=== PATIENT | female | born 1965 | race Hispanic/Latino ===

== ENCOUNTER 2017-04-27 16:44 | Emergency (ER) | payer OTHER ==
[~2017-04-27] VITALS: Ht 149.9 cm; Wt 77.1 kg
[~2017-04-27 16:44] MED LIST: Z.0.ZOLOFT50 MG PO; Z.2.METFORMIN HCL500 PO
--- OUTSIDE RECORDS SUMMARY | 2017-04-27 16:46 | XMS REPORT | Clinical Summary ---
Author Author [facility] Organization [facility] Address Unknown Phone Unavailable Care Team Providers Care [employer] Name Role Phone Asked, Pcp PCP Unavailable Allergies Active Allergy Reactions Severity Noted Date Comments No Known Drug Allergies 07/23/2015 Current Medications Prescription Sig. Disp. Refills Start End Date Status Date aspirin (ECOTRIN) 81 MG Take 81 mg by mouth Active enteric coated tablet daily. atorvastatin (LIPITOR) 20 Take 1 tablet (20 mg 90 tablet 3 08/04/19 08/04/19 Active MG tablet total) by mouth daily. 17 18 clopidogrel (PLAVIX) 75 Take 1 tablet (75 mg 90 tablet 3 08/04/19 Active mg tablet total) by mouth daily. 17 18 metoprolol succinate XL Take 1 tablet (100 mg 90 tablet 3 08/04/19 08/04/19 Active (TOPROL XL) 100 mg 24 hr total) by mouth daily. 17 18 tablet metoprolol succinate XL Take 1 tablet (50 mg 90 tablet 3 08/04/19 Active (TOPROL-XL) 50 mg 24 hr total) by mouth daily. 17 18 tablet nitroglycerin (NITROSTAT) Place 0.4 mg under the Active 0.4 MG SL tablet tongue. clopidogrel (PLAVIX) 75 TAKE 1 TABLET DAILY 90 tablet 1 01/06/20 Active mg tablet 17 metFORMIN (GLUCOPHAGE) Take 1 tablet (1,000 mg 180 tablet 0 01/17/20 Active 1,000 mg total) by mouth 2 (two) 17 tabletIndications: times a day. Uncontrolled type 2 diabetes mellitus without complication, with long-term current use of insulin losartan (COZAAR) 50 MG TAKE 1 TABLET DAILY 90 tablet 1 03/26/19 Active tablet 18 atorvastatin (LIPITOR) 20 Take 1 tablet (20 mg 90 tablet 3 01/31/20 05/26/19 Discontin MG tablet total) by mouth daily. 16 17 ued clopidogrel (PLAVIX) 75 Take 1 tablet (75 mg 90 tablet 3 01/31/20 Discontin mg tablet total) by mouth daily. 16 17 ued losartan (COZAAR) 50 MG Take 1 tablet (50 mg 90 tablet 3 01/31/20 Discontin tablet total) by mouth daily. 16 17 ued metoprolol succinate XL Take 1 tablet (50 mg 90 tablet 3 01/31/20 Discontin (TOPROL-XL) 50 mg 24 hr total) by mouth daily. 16 17 ued tablet metoprolol succinate XL Take 1 tablet (100 mg 30 tablet 11 01/31/20 05/26/19 Discontin (TOPROL XL) 100 mg 24 hr total) by mouth daily. 16 17 ued tablet metFORMIN (GLUCOPHAGE) Take 1 tablet (1,000 mg 180 tablet 0 01/31/20 01/17/20 Discontin 1,000 mg total) by mouth 2 (two) 16 17 ued tabletIndications: times a day. Uncontrolled type 2 diabetes mellitus without complication, with long-term current use of insulin dulaglutide (TRULICITY) Trulicity 1.5 mg/0.5 mL 12 Syringe 0 01/31/20 08/04/19 Discontin 1.5 mg/0.5 mL pen subcutaneous pen injector 16 17 ued injectorIndications: Uncontrolled type 2 diabetes mellitus without complication, with long-term current use of insulin atorvastatin (LIPITOR) 20 Take 1 tablet (20 mg 90 tablet 1 05/26/19 05/26/19 Discontin MG tablet total) by mouth daily. 17 17 ued clopidogrel (PLAVIX) 75 Take 1 tablet (75 mg 90 tablet 1 05/26/19 Discontin mg tablet total) by mouth daily. 17 17 ued losartan (COZAAR) 50 MG Take 1 tablet (50 mg 90 tablet 1 05/26/19 Discontin tablet total) by mouth daily. 17 17 ued metoprolol succinate XL Take 1 tablet (100 mg 90 tablet 1 05/26/19 05/26/19 Discontin (TOPROL XL) 100 mg 24 hr total) by mouth daily. 17 17 ued tablet metoprolol succinate XL Take 1 tablet (50 mg 90 tablet 1 05/26/19 Discontin (TOPROL-XL) 50 mg 24 hr total) by mouth daily. 17 17 ued tablet atorvastatin (LIPITOR) 20 Take 1 tablet (20 mg 30 tablet 0 05/26/19 05/26/19 Discontin MG tablet total) by mouth daily. 17 17 ued clopidogrel (PLAVIX) 75 Take 1 tablet (75 mg 30 tablet 0 05/26/19 Discontin mg tablet total) by mouth daily. 17 17 ued losartan (COZAAR) 50 MG Take 1 tablet (50 mg 30 tablet 0 05/26/19 Discontin tablet total) by mouth daily. 17 17 ued metoprolol succinate XL Take 1 tablet (100 mg 30 tablet 0 05/26/19 05/26/19 Discontin (TOPROL XL) 100 mg 24 hr total) by mouth daily. 17 17 ued tablet metoprolol succinate XL Take 1 tablet (50 mg 30 tablet 0 05/26/19 Discontin (TOPROL-XL) 50 mg 24 hr total) by mouth daily. 17 17 ued tablet atorvastatin (LIPITOR) 20 Take 1 tablet (20 mg 90 tablet 1 05/26/19 08/04/19 Discontin MG tablet total) by mouth daily. 17 17 ued clopidogrel (PLAVIX) 75 Take 1 tablet (75 mg 90 tablet 1 05/26/19 Discontin mg tablet total) by mouth daily. 17 17 ued losartan (COZAAR) 50 MG Take 1 tablet (50 mg 90 tablet 1 05/26/19 Discontin tablet total) by mouth daily. 17 17 ued metoprolol succinate XL Take 1 tablet (100 mg 90 tablet 1 05/26/19 08/04/19 Discontin (TOPROL XL) 100 mg 24 hr total) by mouth daily. 17 17 ued tablet metoprolol succinate XL Take 1 tablet (50 mg 90 tablet 1 05/26/19 Discontin (TOPROL-XL) 50 mg 24 hr total) by mouth daily. 17 17 ued tablet fluconazole (DIFLUCAN) Take 1 tablet (150 mg 1 tablet 0 08/04/19 150 MG tablet total) by mouth once for 17 17 1 dose. losartan (COZAAR) 50 MG Take 1 tablet (50 mg 90 tablet 3 08/04/19 Discontin tablet total) by mouth daily. 17 18 ued fluconazole (DIFLUCAN) TK 1 T PO 1 TIME 0 08/24/19 10/06/19 Discontin 150 MG tablet 17 17 ued terconazole (TERAZOL 7) Insert 1 applicator into 45 g 0 10/06/19 0.4 % vaginal the vagina nightly for 7 17 17 creamIndications: Yeast days. infection involving the vagina and surrounding area fluconazole (DIFLUCAN) Take one tablet by mouth 3 tablet 0 10/06/19 10/13/19 150 MG tabletIndications: now, repeat in 72 hours 17 17 Yeast infection involving and again 72 hours after the vagina and the second dose surrounding area Active Problems Problem Noted Date Pure hypercholesterolemia 08/03/2016 Chronic coronary artery disease 08/02/2015 Diabetes mellitus 08/02/2015 Vitamin D deficiency 08/02/2015 HLD (hyperlipidemia) 08/02/2015 Overweight 08/02/2015 Neuropathy 08/02/2015 Essential hypertension 08/02/2015 Anemia 08/02/2015 Chest pain 08/02/2015 Hypertension 08/02/2015 Tobacco use 08/02/2015 Encounters Date Type Specialty Care Team Description 04/05/2017 Refill Endocrinology Ashely Miller NP Uncontrolled type 2 diabetes mellitus without complication, with long-term current use of insulin 03/26/2017 Refill Cardiology Danilo Moore MD Med Refill 01/16/2017 Orders Only Endocrinology Ashely Miller NP Uncontrolled type 2 diabetes mellitus without complication, with long-term current use of insulin 01/04/2017 Refill Cardiology Danilo Moore MD Med Refill 10/05/2016 Office Visit Obstetrics and Gynecology Madonna Mendez Well woman exam (Primary MD Althea Dx); Visit for screening mammogram; Vaginal irritation; Yeast infection involving the vagina and surrounding area; Mixed incontinence 08/07/2016 Orders Only Cardiology Danilo Moore MD Abnormal CBC (Primary Dx) 08/03/2016 Office Visit Cardiology Danilo Moore MD Coronary artery disease involving [place] coronary artery of [place] heart without angina pectoris (Primary Dx); Hyperlipidemia, unspecified hyperlipidemia type; Chronic coronary artery disease; Essential hypertension 08/03/2016 Refill Cardiology Ilana Wagner MA Med Refill 05/25/2016 Refill Cardiology Bi Garcia Med Refill 05/25/2016 Refill Cardiology Bi Garcia Med Refill 05/25/2016 Refill Cardiology Bi Garcia Med Refill after 04/26/2016 Family History Medical History Relation Name Comments Cancer Father Malignant tumor of prostate Diabetes Father Heart disease Father Diabetes Mother Heart disease Mother Relation Name Status Comments Father Alive Mother Social History Tobacco Use Types Packs/Day Years Used Date Current Every Day Smoker Tobacco Cessation: Ready to Quit: Yes Alcohol Use Drinks/Week oz/Week Comments Yes occ Sex Assigned at Date Recorded Not on file Last Filed Vital Signs Vital Sign Reading Time Taken Blood Pressure 132/78 10/05/2016 9:18 AM CDT Pulse 76 10/05/2016 9:18 AM CDT Temperature - - Respiratory Rate - - Oxygen Saturation - - Inhaled Oxygen - - Concentration Weight 77.6 kg (171 lb) 10/05/2016 9:18 AM CDT Height 149.9 cm (4' 11") 10/05/2016 9:18 AM CDT Body Mass Index 34.54 10/05/2016 9:18 AM CDT Plan of Treatment Health Maintenance Due Date Last Done Comments FOOT EXAM 11/20/1977 OPHTHALMOLOGY EXAM 11/20/1977 URINE MICROALBUMIN 11/20/1977 PAP SMEAR 11/20/1988 INFLUENZA VACCINE 09/19/2016 Results * SURESWAB(R), CANDIDIASIS, PCR (10/05/2016 10:07 AM) Component Value Ref Range C. albicans, DNA DETECTED (A) C. glabrata, DNA NOT DETECTED C. tropicalis, DNA NOT DETECTED C. parapsilosis, DNA NOT DETECTED Comment: REFERENCE RANGE: NOT DETECTED This test was developed and its analytical performance characteristics have been determined by [facility]. It has not been cleared or approved by FDA. This assay has been validated pursuant to the CLIA regulations and is used for clinical purposes. Specimen Performing Laboratory [facility] * SURESWAB(R) TRICHOMONAS VAGINALIS RNA, QL, TMA (Reflex) (10/05/2016 10:07 AM) Component Value Ref Range Sureswab(r) trichomonas NOT DETECTED vaginalis RNA, QL, TMA Comment: REFERENCE RANGE: NOT DETECTED This test was performed using the APTIMA(R) Trichomonas vaginalis Assay(GEN-PROBE(R)). For more information on this test, go to: [email or web address]/faq/[email or web address] reyes Specimen Performing [facility] * ISAÍAS(R) BACTERIAL VAGINOSIS DNA, QN, PCR (10/05/2016 10:07 AM) Component Value Ref Range BV category EQUIVOCAL Lactobacillus species 7.1 Log (cells/mL) Atopobium vaginae DETECTED Log (cells/mL) Megasphaera species NOT DETECTED Log (cells/mL) Gardnerella vaginalis 6.3 Log (cells/mL) Comment: REFERENCE RANGE: BV Category: NOT SUPPORTIVE NOT SUPPORTIVE OF BV: The pattern of results is not supportive of a diagnosis of BV: 1) Presence of Lactobacillus spp., G. vaginalis levels less than 6.0 log cells/mL, and absence of A. vaginae and Megasphaera spp; or 2) Absence of all targeted organisms; or 3) Absence of Lactobacillus spp. plus G. vaginalis detected at levels less than 6.0 log cells/mL and absence of A. vaginae and Megasphaera spp. EQUIVOCAL FOR BV: The pattern of results is neither supportive nor not supportive of a diagnosis of BV. The patient may be in transition into or out of BV: Presence of Lactobacillus spp. plus G. vaginalis (greater or equal to 6.0 log cells/mL) and/or one of the other BV-associated pathogens. SUPPORTIVE OF BV: The pattern of results is supportive of a diagnosis of BV: Absence of Lactobacillus spp. and presence of G. vaginalis greater than or equal to 6.0 log cells/mL and/or one or both of the other BV-associated pathogens. Concentration for Lactobacilli (L. acidophilus/crispatus, L. jensenii) are collectively reported under the term "Lactobacillus spp.", as these species are among the peroxide producing Lactobacilli thought to be protective against bacterial vaginosis. Atopobium vaginae, Megasphaera spp., and Gardnerella (greater than 6.0 log cells/mL) have been associated with vaginosis when present in the absence of peroxidase producing Lactobacilli. This test was developed and its analytical performance characteristics have been determined by [facility]. It has not been cleared or approved by FDA. This assay has been validated pursuant to the CLIA regulations and is used for clinical purposes. Specimen Performing Laboratory [facility] * HPV mRNA E6/E7 REFLEX HPV 16, 18/45 (10/05/2016 10:07 AM) Component Value Ref Range HPV mRNA e6/e7 Not Detected Not Detected Comment: This test was performed using the APTIMA HPV Assay ([employer] This assay detects E6/E7 viral messenger RNA (mRNA) from 14 high-risk HPV types (16,18,31,33,35,39,45,51,52,56,58,59,66,68). Specimen Performing [facility] * THINPREP TIS PAP (10/05/2016 10:07 AM) Component Value Ref Range Clinical information None given Date of last menstrual [id number] period Prev. pap: NONE GIVEN Prev. bx: NONE GIVEN Source Comment: Vaginal cuff Statement of adequacy Comment: Satisfactory for evaluation. Endocervical/transformation zone component absent. Interpretation/result: Comment: Negative for intraepithelial lesion or malignancy. Infection Comment: Fungal organisms morphologically consistent with Felicita spp. Comment Comment: This Pap test has been evaluated with computer assisted technology. Torpedo Worker Comment: YL CT(ASCP) CT screening location: [place] [address] [address] , [place] [address] Specimen Performing Laboratory [facility] * CBC with platelet and differential (08/03/2016 4:00 PM) Component Value Ref Range WBC 16.0 (H) 3.8 - 10.8 Thousand/uL RBC 5.48 (H) 3.80 - 5.10 Million/uL HGB 14.5 11.7 - 15.5 g/dL HCT 44.1 35.0 - 45.0 % MCV 80.5 80.0 - 100.0 fL MCH 26.4 (L) 27.0 - 33.0 pg MCHC 32.8 32.0 - 36.0 g/dL RDW 14.8 11.0 - 15.0 % Platelet count 327 140 - 400 Thousand/uL MPV 8.4 7.5 - 12.5 fL Neutrophils, absolute 10,720 (H) 1,500 - 7,800 cells/uL Lymphocytes, absolute 4,224 (H) 850 - 3,900 cells/uL Monocytes, absolute 832 200 - 950 cells/uL Eosinophils, absolute 160 15 - 500 cells/uL Basophils, absolute 64 0 - 200 cells/uL Neutrophils 67.0 % Lymphocytes 26.4 % Monocytes 5.2 % Eosinophils 1.0 % Basophils + RC 0.4 % Specimen Performing Laboratory [facility] Narrative FASTING:NO * Lipid panel (08/03/2016 4:00 PM) Component Value Ref Range Cholesterol, total 148 125 - 200 mg/dL HDL cholesterol 25 (L) > OR=46 mg/dL Triglycerides 216 (H) <150 mg/dL LDL cholesterol 80 <130 mg/dL (calc) calculated Comment: Desirable range <100 mg/dL for patients with CHD or diabetes and <70 mg/dL for diabetic patients with known heart disease. Cholesterol/HDL ratio 5.9 (H) < OR=5.0 (calc) Non-HDL cholesterol 123 mg/dL (calc) Comment: Target for non-HDL cholesterol is 30 mg/dL higher than LDL cholesterol target. Specimen Performing Laboratory [facility] Narrative FASTING:NO * Comprehensive metabolic panel (08/03/2016 4:00 PM) Component Value Ref Range Glucose 218 (H) 65 - 99 mg/dL Comment: Fasting reference interval For someone without known diabetes, a glucose value >125 mg/dL indicates that they may have diabetes and this should be confirmed with a follow-up test. BUN, whole blood 13 7 - 25 mg/dL Creatinine 0.53 0.50 - 1.10 mg/dL EGFR Non-Afr. Ghanaian 112 > OR=60 mL/min/1.73m2 EGFR 130 > OR=60 mL/min/1.73m2 BUN/creatinine ratio NOT APPLICABLE 6 - 22 (calc) Sodium 136 135 - 146 mmol/L Potassium 4.3 3.5 - 5.3 mmol/L Chloride 101 98 - 110 mmol/L CO2 25 20 - 31 mmol/L Calcium 9.7 8.6 - 10.2 mg/dL Protein 7.2 6.1 - 8.1 g/dL Albumin, S 4.2 3.6 - 5.1 g/dL Globulin, total 3.0 1.9 - 3.7 g/dL (calc) Albumin/globulin ratio 1.4 1.0 - 2.5 (calc) Total bilirubin 0.3 0.2 - 1.2 mg/dL Alkaline phosphatase 127 (H) 33 - 115 U/L AST 16 10 - 35 U/L ALT 22 6 - 29 U/L Specimen Performing Laboratory [facility] Narrative FASTING:NO * ECG 12 lead (08/03/2016 2:08 PM) Component Value Ref Range Ventricular rate 67 Atrial rate 67 NC interval 156 QRSD interval 82 QT interval 424 QTC interval 448 P axis 1 65 QRS axis 1 106 T wave axis 33 EKG impression Normal sinus rhythm-Rightward axis-Borderline ECG-In automated comparison with ECG of 29-OCT-2014 17:38,-No significant change was found- Specimen Performing Laboratory [facility] [address] [place] [address] after 04/26/2016 Insurance Payer Benefit Subscriber ID Type Phone Address Plan / Group AETNA AETNA PPO xxxxxxxxxx PPO OPEN CHOICE
[2017-04-27] MEDS ORDERED: LIPITOR20 MG (17:28)
[2017-04-27] MEDS ORDERED: ASPIR 8181 MG (17:28)
[2017-04-27] MEDS ORDERED: PLAVIX75 MG PO (17:29)
[2017-04-27] MEDS ORDERED: METOPROLOL TART50 MG PO (17:30)
[2017-04-27] MEDS ORDERED: LOSARTAN-HCTZ1 EACH (17:30)
[2017-04-27] MEDS ORDERED: CEFDINIR250 MG/5 M (17:31)
[2017-04-27 18:11] VITALS: BP 142/68
== END 2017-04-27 18:23 | disposition home or self-care (01) ==
LOC: FSED 16:44
DX: R05 Cough (principal); J20.9 Acute bronchitis, unspecified; J01.90 Acute sinusitis, unspecified
CPT/HCPCS: 71046; 80048; 85025; 99283